=== PATIENT | female | born 1970 | race Caucasian/White ===

== ENCOUNTER 2018-09-25 12:03 | Emergency (ER) | payer MEDICAID, SELFPAY ==
[2018-09-25] MEDS ORDERED: IBUP80TA PO (12:44)
[2018-09-25 12:49] VITALS: BP 135/64
[2018-09-25] MEDS ORDERED: ZOFR4TAB16 PO (12:56)
[2018-09-25] MEDS ORDERED: AUGM875T28 PO (12:57)
== END 2018-09-25 13:03 | disposition home or self-care (01) ==
LOC: M ED 12:03
DX: S02.5XXA Fracture of tooth (traumatic), initial encounter for closed fracture (principal); K04.7 Periapical abscess without sinus; K08.89 Other specified disorders of teeth and supporting structures; X58.XXXA Exposure to other specified factors, initial encounter; Y92.9 Unspecified place or not applicable; Y93.9 Activity, unspecified; Y99.9 Unspecified external cause status; Z72.0 Tobacco use